=== PATIENT | female | born 1995 | race Caucasian/White ===

== ENCOUNTER 2020-07-12 07:46 | Emergency (ER) | payer MEDICAID ==
[~2020-07-12] VITALS: Ht 157.5 cm; Wt 58.6 kg
[2020-07-12 07:48] VITALS: BP 134/85
== END 2020-07-12 08:00 | disposition home or self-care (01) ==
LOC: ER 07:47
DX: J02.9 Acute pharyngitis, unspecified (principal); R59.1 Generalized enlarged lymph nodes; F17.200 Nicotine dependence, unspecified, uncomplicated; Z72.89 Other problems related to lifestyle
CPT/HCPCS: 99281

== ENCOUNTER 2020-09-10 21:14 | Emergency (ER) | payer MEDICAID ==
[~2020-09-10] VITALS: Ht 160 cm; Wt 54.5 kg
[~2020-09-10 21:14] MED LIST: LIDOcaine 1% w/epiNEPHrine 1:200,000 30ml vial ONE
[2020-09-10] MEDS ORDERED: TETanus/Pertussis (Acell)/Diphther VAC/PF (Tdap-Adult) 0.5ml syringe IMVAC ONE (21:20)
[2020-09-10] MEDS ORDERED: bacitracin 15gm ointment TP ONE (21:20)
[2020-09-10 21:22] VITALS: BP 124/84
== END 2020-09-10 22:29 | disposition home or self-care (01) ==
LOC: ER 21:15
DX: S51.811A Laceration without foreign body of right forearm, initial encounter (principal); S61.511A Laceration without foreign body of right wrist, initial encounter; F17.200 Nicotine dependence, unspecified, uncomplicated; F14.90 Cocaine use, unspecified, uncomplicated; Z72.89 Other problems related to lifestyle; W45.8XXA Other foreign body or object entering through skin, initial encounter; Y93.E9 Activity, other interior property and clothing maintenance; Y92.9 Unspecified place or not applicable; Y99.8 Other external cause status
CPT/HCPCS: 12001; 90471; 90715; 99284

== ENCOUNTER 2021-02-09 13:57 | Emergency (ER) | payer MEDICAID ==
[~2021-02-09] VITALS: Ht 157.5 cm; Wt 59.8 kg
[2021-02-09 14:22] VITALS: BP 138/91
== END 2021-02-09 20:50 | disposition left against medical advice (07) ==
LOC: ER 13:57
DX: M79.644 Pain in right finger(s) (principal); Z53.21 Procedure and treatment not carried out due to patient leaving prior to being seen by health care provider
CPT/HCPCS: 73140